=== PATIENT | male | born 1955 | race Caucasian/White ===

== ENCOUNTER 2024-09-20 08:09 | Day surgery (SDC) | payer MEDICARE ==
[2024-09-19 10:44] VITALS: BMI 27.1
[2024-09-20 09:44] LABS: #Basophils 0.07 10x3/uL (0.0-0.2); #Eosinophils 0.17 10x3/uL (0.0-0.5); #Monocytes 0.96 10x3/uL (0.0-1.1); #Neutrophils 6.17 10x3/uL (1.5-8.4); %Basophils 0.8 % (0.0-2.0); %Eosinophils 1.9 % (0.0-6.0); %Lymphocytes 18.9 % (18.0-47.0); %Monocytes 10.5 % (0.0-10.0); %Neutrophils 67.6 % (40.0-75.0); Hematocrit 47.1 % (38.8-50.0); Hemoglobin 15.2 g/dL (13.5-17.5); Mean Corpuscular HGB CONC 32.3 g/dL (32.0-36.0); Mean Corpuscular Hemoglobin 29.1 pg (27.0-33.0); Mean Corpuscular Volume 90.1 fL (81.2-95.1); Mean Platelet Volume 10.5 fL (7.4-10.4); Platelet Count 269 10x3/uL (150-450); Red Blood Cell (RBC) Count 5.23 10x6/uL (4.32-5.72); White Blood Cell (WBC) Count 9.1 10x3/uL (3.5-10.5)
[2024-09-20 10:12] LABS: Anion Gap 12 mmol/L (10-20); BUN (Urea Nitrogen) 16 mg/dL (8.4-25.7); Calc. Creatinine Clearance 81 mL/min (70-130); Calcium 9.2 mg/dL (7.8-10.44); Carbon Dioxide 24 mmol/L (23-31); Chloride 104 mmol/L (98-107); Estimated GFR 69; Glucose 108 mg/dL (83-110); Potassium 4.3 mmol/L (3.5-5.1); Sodium 136 mmol/L (136-145)
[2024-09-20] MEDS ORDERED: Bupivacaine PF 0.5% 30 ML VIAL ONE (10:15)
[2024-09-20] MEDS ORDERED: CEFAZOLIN 2 GM VIAL ONE (10:15)
[2024-09-20] MEDS ORDERED: Bupivacaine HCl 0.5%/Epinephrine 1:200,000/PF 30 ml Vial ONE (10:22)
[2024-09-20] MEDS ORDERED: PROPOFOL 20 ML ONE (10:31)
[2024-09-20] MEDS ORDERED: Ondansetron PF 4 MG/2 ML Vial ONE (10:31)
[2024-09-20] MEDS ORDERED: Lidocaine 1% PF 5 ML VIAL ONE (10:31)
[2024-09-20] MEDS ORDERED: fentaNYL 50 mcg/mL 1 mL Vial ONE ×3 (10:40→12:09)
[2024-09-20] MEDS ORDERED: oxyCODONE 5 MG TAB ONE (12:39)
[2024-09-20] MEDS ORDERED: Oxybutynin 5 MG TAB ONE (12:40)
== END 2024-09-20 13:24 | disposition home or self-care (01) ==
LOC: CSHSDC 08:09
PROVIDERS: ATTEND Surgery
PROC: 0JBN3ZZ Excision of Right Lower Leg Subcutaneous Tissue and Fascia, Percutaneous Approach (ICD-10-PCS; principal; 2024-09-20)
DX: D23.71 Other benign neoplasm of skin of right lower limb, including hip (principal); E78.00 Pure hypercholesterolemia, unspecified; K21.9 Gastro-esophageal reflux disease without esophagitis; J44.9 Chronic obstructive pulmonary disease, unspecified; Z79.899 Other long term (current) drug therapy; Z87.891 Personal history of nicotine dependence; Z88.5 Allergy status to narcotic agent
CPT/HCPCS: 11603; 80048; 85025; 93005; J2405; J2704; J3010; 36415; 88305; 93010; J0665